=== PATIENT | male | born 1940 | race Caucasian/White ===

== ENCOUNTER 2022-02-24 15:02 | Inpatient (IN) ==
--- NOTE | 2022-02-24 15:23 | Emergency Department Note ---
Wound/Laceration HIP General Chief Complaint: Extremity Injury, Lower Stated Complaint: left foot on fire Time Seen by Provider: 02/24/22 15:05 Mode of arrival: ambulatory Limitations: no limitations History of Present Illness HPI Narrative: Narrative: Patient is an 81-year-old male that comes into the emergency department today with complaint of left hip and pain in his left foot. Patient describes sharp pain located at the toes and at the left heel. He rates the pain 10 out of 10 on 0-10 numerical pain scale. He apparently had a fall in September of this year and has had pain to his left hip since that time with radiation to the femur. He denies any reinjury or trauma. 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 Dr. Randle who was on-call for orthopedics was consulted and indicated the patient would be okay to bear weight as tolerated and would see him as an outpatient. Patient reports that he needs a hip surgery, but started having pain to the left foot with a small abrasion. He feels that the orthopedic surgeon will not do surgery until his foot is healed. He has not had any abdominal pain, chest pa in, shortness of breath, difficulty breathing, fevers, or chills. He denies any numbness or tingling. His pain is aggravated with weightbearing. He has been taking hydrocodone at home for his pain but reports that this does not help with his pain. Patient has past medical history of chronic kidney disease and patient's creatinine was 1.6 on January 16, 2022, 1.9 on August 17, 2021, and 2.1 on July 04, 2021. He reports that he is taking all of his regular medication. He does take apixaban for A. fib as well as furosemide, levothyroxine, carvedilol, atorvastatin, allopurinol, and losartan. Related Data Home Medications Medication Instructions Recorded Confirmed ipratropium 0.5 mg-albuterol 3 mg 3 ml inhalation QID 10/13/14 02/24/22 (2.5 mg base)/3 mL nebulization soln cholecalciferol (vitamin D3) 25 2,000 unit PO QDAY 02/11/18 02/24/22 mcg (1,000 unit) capsule allopurinol 100 mg tablet 100 mg PO QDAY 08/10/20 02/24/22 levothyroxine 75 mcg tablet 75 mcg PO QDAY 08/10/20 02/24/22 vit C,E,zinc,copper-wjszm1p 250 1 cap PO BID 08/10/20 02/24/22 mg-lutein 5 mg-zeaxanthin 1 mg capsule (Ocuvite Adult 50 Plus) acetaminophen 325 mg capsule 325 mg PO ONCE PRN Pain 10/07/20 02/24/22 (Tylenol) apixaban 5 mg tablet (Eliquis) 5 mg PO BID 10/07/20 02/24/22 budesonide-formoterol HFA 160 2 puff inhalation BID 10/07/20 02/24/22 mcg-4.5 mcg/actuation aerosol inhaler (Symbicort) carvedilol 3.125 mg tablet 6.25 mg PO BID 10/07/20 02/24/22 furosemide 20 mg tablet 20 mg PO BID 12/29/20 02/24/22 losartan 25 mg tablet 25 mg PO QDAY 02/16/21 02/24/22 hydrocodone 7.5 mg-acetaminophen 1 - 2 tab PO BIDP PRN pain 02/24/22 02/24/22 325 mg tablet Previous Rx's Medication Instructions Recorded atorvastatin 20 mg tablet 20 mg PO QDAY #90 tabs 01/04/18 Allergies Allergy/AdvReac Type Severity Reaction Status Date / Time No Known Drug Allergies Allergy Verified 02/24/22 23:42 Review of Systems ROS ROS Narrative: Narrative: All systems ED: reviewed and negative except as stated. [facility] Narrative Patient History Narrative: Narrative: Medical/Surgical/Family History All Active Problems (Updated 02/25/22 @ 13:03 by NELIDA Rogel) Atrial fibrillation (Acute) Benign localized prostatic hyperplasia with lower urinary tract symptoms (LUTS) (Acute) CAD (coronary artery disease) (Acute) Cardiomyopathy, secondary (Acute) Chronic kidney disease, stage III (moderate) (Chronic) COPD (chronic obstructive pulmonary disease) (Acute) Hx of colonic polyps (Acute) CHF (congestive heart failure) (Acute) Hx of gout (Chronic) Hepatitis B infection (Acute) Hyperlipidemia (Acute) Hypertension, essential, benign (Acute) Melanoma of skin (Acute) PE (pulmonary embolism) (Acute) Rheumatic heart disease (Acute) Hx of mitral valve repair (Acute) Hx of repair of left rotator cuff (Acute) Hx of repair of right rotator cuff (Acute) Secondary hyperparathyroidism of renal origin (Chronic) Anemia (Chronic) Hypothyroidism (Acute) NEVA (obstructive sleep apnea) (Acute) Abnormal CT scan, chest (Acute) NEVA (obstructive sleep apnea) (Acute) Elevated alkaline phosphatase level (Chronic) Elevated ferritin level (Acute) History of diabetes mellitus, type II (Chronic) Multiple skin tears (Acute) Encounter for wound re-check (Acute) Chronic systolic congestive heart failure, NYHA class 2 (Chronic) Secondary hyperparathyroidism of renal origin (Chronic) Lung mass (Chronic) Open wound of elbow (Chronic) At risk for falls (Chronic) Coronary arteriosclerosis (Chronic) Colon polyp (Chronic) Drug-induced hyperkalemia (Acute) Renal failure (ARF), acute on chronic (Acute) Hypotension (Acute) Cellulitis and abscess of foot (Acute) Acute kidney injury (Acute) Acute hyperkalemia (Acute) Avascular necrosis of bone of left hip (Acute) Medical History Anemia At risk for falls Atrial fibrillation Benign localized prostatic hyperplasia with lower urinary tract symptoms (LUTS) CAD (coronary artery disease) Cardiomyopathy, secondary CHF (congestive heart failure) Chronic kidney disease, stage III (moderate) 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 Sits right at the cusp of CKD 3 and 4 with a GFR of 30 cc/min In the past bland urinalysis Normal renal ultrasound Chronic systolic congestive heart failure, NYHA class 2 LVEF around 40 to 45% He is on low-dose EFRAIN inhibitor, beta-marcelo, and twice a day loop diuretic Colon polyp COPD (chronic obstructive pulmonary disease) Coronary arteriosclerosis Hepatitis B infection Hx of colonic polyps Hx of gout On a allopurinol adjusted for CKD Hyperlipidemia Hypertension, essential, benign Lung mass Melanoma of skin mid-lower back Open wound of elbow Left PE (pulmonary embolism) Rheumatic heart disease MVR Secondary hyperparathyroidism of renal origin PTH is at 72 near goal for CKD stage III Vitamin D, Calcium and phos at goal ct calcitriol 0.5mcg QOD for now will monitor Secondary hyperparathyroidism of renal origin At one time he was on calcitriol but this is been discontinued I will monitor is intact parathyroid hormone level on a every 6 month basis and reinitiate calcitriol therapy 1 its definitely above 150 but less than 300 Surgical History History of cardiac catheterization (09/18/14) Right heart catheterization and selective coronary angiography Hx of mitral valve repair valvuloplasty-robotic repair and maze procedure Hx of repair of left rotator cuff Hx of repair of right rotator cuff Family History no member listed Alcohol abuse father , 63 Cerebrovascular accident mother , 97 Cerebrovascular accident Social History Smoking Status: Never smoker Alcohol Intake Frequency: a few times a week Substance Use: does not use Exam Narrative Narrative: Narrative: General Limitations: no limitations General appearance: Present alert and in no apparent distress Head Head: Present atraumatic, normocephalic and normal inspection Eye Eye: Present normal appearance; Absent scleral icterus ENT ENT: Present mucous membranes moist Chest Chest: Present normal inspection and symmetric chest wall rise Respiratory Respiratory: Present normal lung sounds bilaterally; Absent respiratory distress, rales/crackles, wheezes or accessory muscle use Cardiovascular Cardiovascular: Present regular rate and irregular rhythm; Absent systolic murmur, diastolic murmur, rubs or clicks Adbominal Abdominal: Present soft; Absent distention or tenderness Extremities Extremities: Present normal capillary refill and other (Medial distal end of the left third and fourth toe of small superficial abrasions that are approximately 1 cm in diameter. No discharge or drainage. No surrounding erythema. Normal s ensation to the foot.); Absent pedal edema, pretibial edema or cyanosis Expanded Lower Extremity Hip/Pelvis: Present normal inspection, full ROM and tenderness (Moderate tenderness with palpation on the anterior and lateral side left hip.); Absent swelling, deformity, erythema, external rotation, internal rotation or shortening Upper leg: Present normal inspection and full ROM; Absent tenderness Knee: Present normal inspection and full ROM; Absent tenderness Lower leg: Present normal inspection and full ROM; Absent tenderness Neurovascular/Tendon: Present normal capillary refill; Absent sensory deficit Neurological Neurological: Present alert and oriented X3 Psychiatric Psychiatric: Present normal affect and normal mood Skin Skin: Present warm (WNL), dry and normal color Course Vital Signs Vital signs: Vital Signs Temperature 97.0 F 02/24/22 15:17 Pulse Rate 91 H 02/24/22 15:17 Respiratory Rate 18 02/24/22 15:17 Blood Pressure 86/55 02/24/22 15:17 Pulse Oximetry (%) 97 02/24/22 15:17 Oxygen Delivery Method 02/24/22 15:17 Temperature 97.3 F 02/25/22 08:01 Pulse Rate 106 H 02/25/22 09:50 Respiratory Rate 18 02/25/22 09:50 Blood Pressure 99/74 02/25/22 08:01 Pulse Oximetry (%) 98 02/25/22 09:50 Oxygen Delivery Method 02/25/22 09:50 Oxygen Flow Rate (L/min) 2 02/25/22 09:50 [facility] MDM Narrative Medical decision making narrative: Narrative: Patient is an 81-year-old male with chief complaint of pain that is a burning sensation in his left foot. He recently was seen 4 days ago at [facility] emergency department with left hip pain that has been bothering him since he fell sometime in September of this year. Was able to review the CT imaging report from outside facility that reports avascular necrosis of left hip without acute bony abnormalities and severe arthritic changes. Patient presented today with complaint of pain in his left foot and heel. 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 Proceed with an ultrasound of left lower extremity that does not show any evidence of DVT. Patient's [id number] chemistry panel did reveal a potassium of 5.8 and creatinine of 2.3. Patient has chronic kidney disease and baseline creatinine of 1.6 and 1.9. Patient was also hypotensive and did have bradycardia today so elected to hold off on the Dilaudid and patient received 1 L normal saline for hydration and a dose of IV Tylenol for pain. His pulse remains stable in the 60-80 range. EKG was obtained today that does show A. fib which is not a new finding for the patient and rate of 112. On the personnel monitor rate was not sustained with tachycardia. He was not experiencing any chest pain or shortness of breath. Patient has mild macrocytic hyperchromic anemia today on his CBC without any leukocytosis. He does not appear to be any significant findings of cellulitis on exam today to his left foot but he does have a couple small abrasions. Patient's pain that he is experiencing is likely related to the avascular necrosis. He feels very uncomfortable today and feels that he cannot manage his pain at home. He has been using hydrocodone without much relief. Today IV Tylenol was given upon arrival here in the emergency department. Patient was given 4.65 mill equivalent dose of calcium gluconate IV today for treatment of the hyperkalemia. I was able to speak to her electrolysis investigator, Dr. Ballesteros today which I am very appreciative of his time to speak with me. He reports that the patient will need to stop his losartan and he recommended no NSAIDs for management of patient's pain. He did recommend that patient may need a renal ultrasound to ensure that there is no obstruction. Given the patient having the pain and acute hyperkalemia with increase with creatinine level patient may benefit from hospitalization where management of electrolytes and monitoring renal function closely could be done. I was able to also speak with Dr. Matos who is on-call today for orthopedics regarding this patient's hip pain with avascular necrosis. He reports that he w ould be happy to consult with the hospitalist if patient is admitted to see about possible hip surgery, but it may not be necessary to be done over the weekend. He did recommend correcting potassium and stabilizing his renal function prior to any upcoming surgical procedure. I was able to consult with Dr. Zimmerman today who is on for hospitalist service at [facility]. Dr. Zimmerman does agree to accept patient for hospital admission and will admit patient to [facility] today. Lab Data Lab results reviewed: Yes I reviewed the patient's lab results. Result diagrams: 02/24/22 15:41 02/25/22 04:05 Labs: Lab Results 02/24/22 02/24/22 02/24/22 Range/Units 15:37 15:41 15:43 WBC 7.4 (4.5-11.0) K/mcL RBC 3.38 L (4.63-6.08) M/mcL Hgb 11.8 L (13.7-17.5) g/dL Hct 36.7 L (40.1-51.0) % POC Hct 40.0 L 40.0 L (41-55) MCV 108.6 H (80.0-100.0) fL MCH 34.9 H (26.0-34.0) pg MCHC 32.2 (31.0-36.0) g/dL RDW 13.8 (11.5-14.5) % Plt Count 239 (140-440) K/mcL MPV 10.3 (8.8-12.5) fL Immature Gran % (Auto) 0.5 (0.0-0.5) % Neut % (Auto) 69.4 (38.0-78.0) % Lymph % (Auto) 13.6 L (15.5-49.0) % [place] % (Auto) 12.6 H (1.0-12.0) % Eos % (Auto) 3.5 (0.0-7.0) % Baso % (Auto) 0.4 (0.0-2.0) % Lymph # (Auto) 1.00 L (1.50-4.80) K/mcL [place] # (Auto) 0.93 H (0.10-0.90) K/mcL Eos # (Auto) 0.26 (0.00-0.70) K/mcL Baso # (Auto) 0.03 (0.00-0.30) K/mcL Immature Gran # 0.04 (0.00-0.05) K/mcl Absolute Neutrophils 5.12 (1.80-8.00) K/mcL POC Sodium 135 134 (133-145) POC Potassium 5.9 H* 5.8 H (3.3-5.1) POC Chloride 103 103 (96-108) POC Total CO2 21.0 L 21.0 L (22-30) POC BUN 76 H 81 H (6-20) POC Creatinine 2.4 H 2.3 H (0.6-1.2) POC Glucose 88 89 (70-105) POC WB Ioniz Calcium 1.14 L 1.15 L (1.16-1.32) 02/24/22 Range/Units 17:26 WBC (4.5-11.0) K/mcL RBC (4.63-6.08) M/mcL Hgb (13.7-17.5) g/dL Hct (40.1-51.0) % POC Hct 35.0 L (41-55) MCV (80.0-100.0) fL MCH (26.0-34.0) pg MCHC (31.0-36.0) g/dL RDW (11.5-14.5) % Plt Count (140-440) K/mcL MPV (8.8-12.5) fL Immature Gran % (Auto) (0.0-0.5) % Neut % (Auto) (38.0-78.0) % Lymph % (Auto) (15.5-49.0) % [place] % (Auto) (1.0-12.0) % Eos % (Auto) (0.0-7.0) % Baso % (Auto) (0.0-2.0) % Lymph # (Auto) (1.50-4.80) K/mcL [place] # (Auto) (0.10-0.90) K/mcL Eos # (Auto) (0.00-0.70) K/mcL Baso # (Auto) (0.00-0.30) K/mcL Immature Gran # (0.00-0.05) K/mcl Absolute Neutrophils (1.80-8.00) K/mcL POC Sodium 134 (133-145) POC Potassium 5.9 H* (3.3-5.1) POC Chloride 103 (96-108) POC Total CO2 20.0 L (22-30) POC BUN 81 H (6-20) POC Creatinine 2.3 H (0.6-1.2) POC Glucose 89 (70-105) POC WB Ioniz Calcium 1.10 L (1.16-1.32) Radiology Data Radiology results reviewed: Yes I reviewed the patient's radiology results. Radiology results narrative: Ordering Physician:Flako Barfield Date of Service:02/24/22 Procedure(s):XR foot comp LT 3V HISTORY: Fell in September, open wound, persistent left foot pain FINDINGS: No fracture, dislocation, bone erosion or periosteal elevation are present. 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 The clinically described open wound is difficult to clearly identified. No gas or foreign body are present in the soft tissues. There is moderate atherosclerotic disease in the foot and ankle. 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 Doppler shows normal waveform patterns. No abnormal fluid collection is seen. IMPRESSION: Normal exam, without evidence of deep venous thrombosis Interpreted and Authenticated by: Geoff Rossa 02/24/22 EKG Data EKG #1: EKG attestation: Yes There are no EKG findings of acute coronary syndrome Rate: tachycardia Rhythm: A.Fib Discharge Plan Patient/Caregiver Discharge Instructions Pt seen by PONY ROUGHER/PA only: No Clinical Impression: Acute kidney injury, Acute hyperkalemia, Avascular necrosis of bone of left hip Patient Disposition: Xfer As Inpt ([facility]) Discharge Date/Time: 02/24/22 20:28
[2022-02-24 15:42] LABS: POC Calcium, Ionized 1.14 (1.16-1.32); POC Creatinine 2.4 (0.6-1.2); POC Potassium 5.9 (3.3-5.1)
[2022-02-24 15:45] LABS: POC Calcium, Ionized 1.15 (1.16-1.32); POC Creatinine 2.3 (0.6-1.2); POC Potassium 5.8 (3.3-5.1)
[2022-02-24] MEDS ORDERED: HYDROmorphone 0.5 MG/0.5 ML SYRINGE IV PRN (15:52)
[2022-02-24] MEDS ORDERED: 0.9 % SODIUM CHLORIDE 1,000 ML IV ONE (15:52)
[2022-02-24] MEDS ORDERED: KETOROLAC 30 MG/ML VIAL IV ONE (15:53)
[2022-02-24] MEDS ORDERED: ACETAMINOPHEN 650 MG/65 ML BAG IV ONE (15:54)
--- NOTE | 2022-02-24 15:58 | XRay Report ---
HISTORY: Fell in September, open wound, persistent left foot pain FINDINGS: No fracture, dislocation, bone erosion or periosteal elevation are present. 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 The clinically described open wound is difficult to clearly identified. No gas or foreign body are present in the soft tissues. There is moderate atherosclerotic disease in the foot and ankle. 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
[2022-02-24 16:28] LABS: Basophils # (Auto) 0.03 K/mcL (0.00-0.30); Basophils % (Auto) 0.4 % (0.0-2.0); Eosinophils # (Auto) 0.26 K/mcL (0.00-0.70); Eosinophils % (Auto) 3.5 % (0.0-7.0); Hematocrit 36.7 % (40.1-51.0); Hemoglobin 11.8 g/dL (13.7-17.5); Lymphocytes % (Auto) 13.6 % (15.5-49.0); Mean Cell Volume 108.6 fL (80.0-100.0); Mean Corpuscular HGB Conc 32.2 g/dL (31.0-36.0); Mean Platelet Volume 10.3 fL (8.8-12.5); Monocytes # (Auto) 0.93 K/mcL (0.10-0.90); Monocytes % (Auto) 12.6 % (1.0-12.0); Neutrophils % (Auto) 69.4 % (38.0-78.0); Platelet Count 239 K/mcL (140-440); RBC 3.38 M/mcL (4.63-6.08); Red Cell Distribution Width 13.8 % (11.5-14.5); WBC 7.4 K/mcL (4.5-11.0)
--- NOTE | 2022-02-24 17:05 | Ultrasound Report ---
History: Left leg pain from the heel to the hip FINDINGS: There is normal augmentation and compressibility in the deep veins and saphenous vein from the groin through the lower calf. Doppler shows normal waveform patterns. No abnormal fluid collection is seen. IMPRESSION: Normal exam, without evidence of deep venous thrombosis Interpreted and Authenticated by: Geoff Rosas 02/24/22
[2022-02-24 17:28] LABS: POC Calcium, Ionized 1.1 (1.16-1.32); POC Creatinine 2.3 (0.6-1.2); POC Potassium 5.9 (3.3-5.1)
[2022-02-24] MEDS ORDERED: CALCIUM GLUCONATE 4.65 MEQ in DEXTROSE 5% IN WATER 50 ML IV ONE (17:58)
--- NOTE | 2022-02-24 19:16 | Event Note ---
Event Note Event Note: Called by ED physician concerning elderly male with Hx of rLVEF CHF with MC replacement, CKD 3/4, T2DM, chronic mild hyperkalemia (low 5's) who present with foot pain in the setting of cellulitis w/o MRI evidence of osteomyelitis. Vital Signs Temp Pulse Resp BP Pulse Ox O2 Del Method 02/24/22 19:01 16 93/73 02/24/22 19:00 17 02/24/22 18:31 19 106/86 02/24/22 18:26 15 02/24/22 18:01 97 H 21 96/72 02/24/22 17:31 90/76 02/24/22 17:01 98/63 02/24/22 16:31 85/64 02/24/22 16:41 56 L 91 Room Air 02/24/22 16:19 78 02/24/22 16:01 101/68 02/24/22 15:56 78/51 02/24/22 15:55 69 02/24/22 15:52 104 H 02/24/22 15:46 89/57 02/24/22 15:37 106/61 02/24/22 15:32 97/65 02/24/22 15:17 36.1 C 91 H 18 86/55 97 Room Air Intake and Output 02/24/22 02/24/22 02/24/22 03:59 11:59 19:59 Intake Total 1125 Balance 1125 Intake: IV 1125 Sodium Chloride 0.9% 1,000 ml @ 1000 Wide Open IV BOLUS ONE Rx#: [id number] Calcium Gluconate 4.65 Meq In 60 Dextrose 5% in Water 50 ml @ 100 mls/hr IV ONCE ONE Rx#: [id number] Other: Weight 83.915 kg Patient Weight 02/25/22 03:59 Weight 83.915 kg Laboratory Results - last 48 hr 02/24/22 02/24/22 02/24/22 15:37 15:41 15:43 WBC 7.4 RBC 3.38 L Hgb 11.8 L Hct 36.7 L POC Hct 40.0 L 40.0 L MCV 108.6 H MCH 34.9 H MCHC 32.2 RDW 13.8 Plt Count 239 MPV 10.3 Immature Gran % (Auto) 0.5 Neut % (Auto) 69.4 Lymph % (Auto) 13.6 L [place] % (Auto) 12.6 H Eos % (Auto) 3.5 Baso % (Auto) 0.4 Lymph # (Auto) 1.00 L [place] # (Auto) 0.93 H Eos # (Auto) 0.26 Baso # (Auto) 0.03 Immature Gran # 0.04 Absolute Neutrophils 5.12 POC Sodium 135 134 POC Potassium 5.9 H* 5.8 H POC Chloride 103 103 POC Total CO2 21.0 L 21.0 L POC BUN 76 H 81 H POC Creatinine 2.4 H 2.3 H POC Glucose 88 89 POC WB Ioniz Calcium 1.14 L 1.15 L 02/24/22 17:26 WBC RBC Hgb Hct POC Hct 35.0 L MCV MCH MCHC RDW Plt Count MPV Immature Gran % (Auto) Neut % (Auto) Lymph % (Auto) [place] % (Auto) Eos % (Auto) Baso % (Auto) Lymph # (Auto) [place] # (Auto) Eos # (Auto) Baso # (Auto) Immature Gran # Absolute Neutrophils POC Sodium 134 POC Potassium 5.9 H* POC Chloride 103 POC Total CO2 20.0 L POC BUN 81 H POC Creatinine 2.3 H POC Glucose 89 POC WB Ioniz Calcium 1.10 L Magnetic Resonance Report Signed Ordering Physician:Unknown,Unknown Date of Service:02/24/22 Procedure(s):MR nikki DAN wo con History: Diabetic with open wound in the left heel and pressure ulcer in a toe, stage II TECHNIQUE: Multiplanar imaging was performed using multiple pulse sequences. FINDINGS: There is moderate cellulitis along the inferior medial aspect of the heel. There is inflammation of the deep fat extending down to the level of bone. However, there is no bone erosion or evidence of osteomyelitis. There is a small spur on the plantar surface of the calcaneus with no associated inflammation. 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 The toes are otherwise normal. There is no fracture, dislocation or evidence of osteomyelitis within the toes. No soft tissue abscess is present in the foot. There is a cluster of small subcortical cysts in the lateral malleolus which is probably related to arthritis. IMPRESSION: Cellulitis along the inferior medial aspect of the heel and no evidence of osteomyelitis Renal Office Note 01/2022: The patient has h/o CKD stage III with no proteinuria in the setting of HTN, ischemic cardiomyopathy with EF of 30-35%,obesity and h/o T2DM He has secondary hyperparathyroidism and mild anemia associated with his CKD. Never demonstrated proteinuria in ~ 10 measurements Blood pressure is well controlled his GFR is stable albeit reduced at around 30 to 35 cc/min. He knows to avoid nonsteroidals and he has not had a flare of the gout since being started on allopurinol. His atrial fibrillation is well controlled on a combination of amiodarone 100 mg a day and carvedilol 6.25 mg twice a day. He has minimal edema on furosemide 40 mg twice a day. He is on lisinopril 5 mg a day for additional blood pressure control. He takes an inhaled steroid/LABA combination as well as a rescue inhaler (ASCENCION). Today he is doing well and offers no complaints and is you can see his GFR is stable and he has no significant proteinuria. 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 ON MY LABS TSH was 50 in Jan 2020, but he tells me that [facility] and he was told things looked okay. He may need "tie breaker" TSH level as he is on amiodarone and prone to develop hypothyroidism. He is not particularly bradycardic this visit. 14 day Holter now with Dr Zander BILLY at [facility] cardiology Recent increase in T4 replacement from 50 to 75 ug/day. [facility] to recheck TSH Well compensated CHF with stabe CKD. Tolerates low BP well. To my eye this is cardiorenal syndrome and his kidneys will mirror his cardiac output => Echo 06/2020 with rLVEF 25% and dilated LV Blood pressure is well controlled his GFR is stable albeit reduced at around 30 to 35 cc/min. He knows to avoid nonsteroidals and he has not had a flare of the gout since being started on allopurinol. His atrial fibrillation is well controlled on a combination of amiodarone 100 mg a day and carvedilol 6.25 mg twice a day. He has minimal edema on furosemide 40 mg twice a day. He is on lisinopril 5 mg a day for additional blood pressure control. He takes an inhaled steroid/LABA combination as well as a rescue inhaler (ASCENCION). Today he is doing well and offers no complaints and is you can see his GFR is stable and he has no significant proteinuria. 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 ON MY LABS TSH was 50 in Jan 2020, but he tells me that [facility] and adjusting his thyroid replacement and he was told things looked okay. He may need "tie breaker" TSH level as he is on amiodarone and prone to develop hypothyroidism. He is not particularly bradycardic this visit. 14 day Holter now with Dr Zander BILLY at [facility] cardiology Recent increase in T4 replacement from 50 to 75 ug/day. [facility] to recheck TSH Well compensated CHF with stabe CKD. Tolerates low BP well. To my eye this is cardiorenal syndrome and his kidneys will mirror his cardiac output He is now presenting with decreased GFR, elevated potassium and no evidence of an AG (+) acidosis. 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 As go the heart (CO and BP)...so goes the kidneys, he probably needs Cardiac management as well as renal as this is worsening cardiorenal syndrome Pre-Hospital Serum Creatinine Assessment and Plan Assessment and Plan (1) Renal failure (ARF), acute on chronic: Status: Acute Code(s): N17.9 - Acute kidney failure, unspecified; N18.9 - Chronic kidney disease, unspecified Current Status: New Comment: Low BP and CO is fixed low EF and poor LV filling from A fib Worsening of underlying cardiorenal syndrome is most likely (2) Hypotension: Status: Acute Code(s): I95.9 - Hypotension, unspecified Comment: Poor LVEF/BP and infection related vasodilation (3) Chronic kidney disease, stage III (moderate): Status: Chronic Code(s): N18.3 - Chronic kidney disease, stage 3 (moderate) Qualifiers: Chronic kidney disease stage 3 subtype: stage 3b (GFR 30-44) Qualified Code(s): N18.32 - Chronic kidney disease, stage 3b Comment: Either cardiorenal syndrome or chronic interstitial nephritis. CKD 3 with a GFR of 30 - 40cc/min In the past bland urinalysis Normal renal ultrasound (4) Chronic systolic congestive heart failure, NYHA class 2: Status: Chronic Code(s): I50.22 - Chronic systolic (congestive) heart failure Comment: LVEF around 40 to 45% He is on low-dose EFRAIN inhibitor, beta-marcelo, and twice a day loop diuretic Despite low blood pressure it seems to be fairly well compensated (5) Atrial fibrillation: Status: Acute Code(s): I48.91 - Unspecified atrial fibrillation Qualifiers: Atrial fibrillation type: chronic Qualified Code(s): I48.2 - Chronic atrial fibrillation (6) Secondary hyperparathyroidism of renal origin: Status: Chronic Code(s): N25.81 - Secondary hyperparathyroidism of renal origin Comment: At one time he was on calcitriol but this is been discontinued I will monitor is intact parathyroid hormone level on a every 6 month basis and reinitiate calcitriol therapy 1 its definitely above 150 but less than 300 (7) Cellulitis and abscess of foot: Status: Acute Code(s): L03.119 - Cellulitis of unspecified part of limb; L02.619 - Cutaneous abscess of unspecified foot Plan 1. Volume expand as tolerated 2. STOP TORADOL 3. Hold RASSI therapy 4. Lokelma 10 gm po daily for hyperkalemia in a patient who needs RASSI therapy for rLVEF CHF (If not available here, you'll have to use kayexalate in 20% sorbitol) 5. Avoid renally toxic Rx like NSAIDs and TMP/SMX 6. May need inotropic infusion with dopamineIV/po ypur choice. 7. Clinda for foot 8. Procalcitonin, ESR, CRP and proBNP tonite as baseline 9. Renal U/S to R/O obstruction 10. Repeat Echo 11. Cardiology evaluation. 12. Would not argue against Tx'quyen for higher level of care have reviewed the current data. 13. Dr Boykin sales agent pest control service in AM if consult request by Hospital medicine Patient Instructions: N/A
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
[2022-02-24] MEDS ORDERED: SENNOSIDES 1 TABLET PO PRN (20:35)
[2022-02-24] MEDS ORDERED: ONDANSETRON 4 MG/2 ML VIAL IV PRN (20:35)
[2022-02-24] MEDS ORDERED: ACETAMINOPHEN 325 MG TABLET PO PRN (20:35)
[2022-02-24] MEDS ORDERED: POTASSIUM CHLORIDE 40 MEQ in DEXTROSE 5% IN WATER 500 ML IV PRN (20:35)
[2022-02-24] MEDS ORDERED: MAGNESIUM SULFATE 2 GM/50 ML BAG IV PRN (20:35)
[2022-02-24] MEDS ORDERED: CARVEDILOL 3.125 MG TABLET PO SCH (21:00)
[2022-02-24] MEDS ORDERED: SODIUM POLYSTYRENE SULFONATE 15 GM/60 ML SUSPENSION PO SCH (21:15)
[2022-02-24] MEDS: Budesonide-Formoterol [Symbicort] 160-4.5 mcg/act INH SCH (21:16)
[2022-02-24] MEDS: HYDROcodone/APAP 5/325MG TABLET PO PRN (21:20)
[2022-02-24] MEDS: DOCUSATE SODIUM 100 MG CAPSULE PO SCH (21:20)
[2022-02-24] MEDS: APIXABAN 5 MG TABLET PO SCH (21:20)
[2022-02-24] MEDS: 0.9 % SODIUM CHLORIDE 10 ML SYRINGE IV SCH (21:22)
[2022-02-24] MEDS: 0.9 % SODIUM CHLORIDE 1,000 ML IV SCH (21:22)
[2022-02-24] MEDS: IPRATROPIUM/ALBUTEROL 3 ML AMPUL.NEB NEB SCH (21:28)
[2022-02-25] MEDS: HYDROcodone/APAP 5/325MG TABLET PO PRN ×3 (01:58→20:06)
[2022-02-25] MEDS: 0.9 % SODIUM CHLORIDE 10 ML SYRINGE IV SCH ×3 (05:36→20:06)
[2022-02-25 07:23] LABS: ALT/SGPT 6 U/L (<40); AST/SGOT 14 U/L (<40); Albumin 2.6 gm/dL (3.2-5.2); Albumin/Globulin Ratio 0.9 (1.0-2.3); Alkaline Phosphatase 180 U/L (39-117); Bilirubin,Direct 0.2 mg/dL (<0.3); Bilirubin,Total 0.4 mg/dL (0.1-1.0); Blood Urea Nitrogen 69 mg/dL (8-23); Calcium 8.3 mg/dL (8.6-10.4); Carbon Dioxide 19 mmol/L (22-30); Chloride 104 mmol/L (96-108); Globulin 2.8 gm/dL (2.2-3.7); Glomerular Filtration Rate 30; Glucose 95 mg/dL (70-105); Lactate Dehydrogenase 223 U/L (135-225); Phosphorous 4.4 mg/dL (2.5-4.5); Triglycerides 54 mg/dL (<150); Uric Acid 5.4 mg/dL (2.5-8.0)
--- NOTE | 2022-02-25 08:34 | Internal Med Progress Note ---
SUBJECTIVE Subjective Patient information: Note initiated : 02/25/22 at 8:28 am Service Date, if different from initiated Date: [] Patient: Luis Fernando Vann 81 y/o M admitted on 02/24/22 for left foot on fire. Chief Complaint: [] Interval history: History of present illness: Mr. Vann is a 81 year old M This to the ED with left foot pain. Patient recently seen at [facility] for left hip pain after a fall 2 months prior. He was diagnosed with avascular necrosis of left hip and ER consulted with Dr. Randle who is going to see the patient in the office. While in the ER he was evaluated and found to have a potassium of 5.9. His creatinine was above baseline to 2.4. His blood pressure which typically runs 100/60 and dropped as low as 89/57. Patient denies any fever chills chest pain nausea or vomiting. Complains of constipation. Left foot x-ray was done which showed severe osteoarthritis of the first metatarsophalangeal joint but no fractures. He has ulcerations over the tips of his left toes which looks like they have been rubbed raw 02/25 Patient dates he feels fine other than his hip pain and his left foot pain which is mostly at the end of his toes. Potassium mildly elevated but better. Creatinine still elevated but improving. Discussed the case with Dr. Ballesteros who recommended low-dose of captopril once EFRAIN inhibitor restarted and low potassium diet. MRI done yesterday showed cellulitis along the inferior medial aspect of the heel but no osteomyelitis. Review of Systems: denies headache/fever/chills/nausea/vomiting/chest or abdominal pain/cough/dyspnea/diarrhea. Otherwise see above. Constitutional Vitals: Vital Signs Temp Pulse Resp BP Pulse Ox O2 Del Method O2 Flow Rate 97.3 F 65 19 99/74 100 2 02/25/22 08:01 02/25/22 06:01 02/25/22 08:01 02/25/22 08:01 02/25/22 06:01 02/25/22 06:01 02/25/22 06:01 Period Temp Pulse Resp BP Sys/Freeman Pulse Ox O2 Del Method O2 Flow Rate Last 24 Hr 97.0 F-97.5 F 56-136 14-21 78-115/51-91 91-100 Nasal Cannula- Room Air 2-2 Intake and Output 02/24/22 02/25/22 02/25/22 19:59 03:59 11:59 Intake Total 1125 Output Total 400 175 Balance 1125 -400 -175 Weight 83.915 kg 83.098 kg Intake & Output: Intake & Output 02/24/22 02/25/22 02/25/22 19:59 03:59 11:59 Intake Total 1125 Output Total 400 175 Balance 1125 -400 -175 Weight 83.915 kg 83.098 kg Intake: IV 1125 Sodium Chloride 0.9% 1,000 ml @ 1000 Wide Open IV BOLUS ONE Rx#: [id number] Calcium Gluconate 4.65 Meq In 60 Dextrose 5% in Water 50 ml @ 100 mls/hr IV ONCE ONE Rx#: [id number] Output: Void Amount 400 175 Other: Urine Appearance Clear Small Blood Clots Hematuria Urine Color Light Red Yellow Urine Odor Normal Normal Exam: General: Alert, Awake, No acute Distress Eyes/N/T: EOMI, Head/Neck: neck supple, CV: Irregular, No murmurs, Pulm: Clear b/l, no wheezing/rhonchi/rales Abd: soft, nontender, +BS x4 Ext: no clubbing/cyanosis/edema. left toes 3-5 with ulcerations/erythema over tips of toes Neuro: Alert, no focal deficits, moves all extremities, Skin: warm/dry OBJ DATA Labs CBC & Chem 7: 02/24/22 15:41 02/25/22 04:05 Labs: Abnormal Lab Results 02/25/22 02/24/22 02/24/22 04:05 17:26 15:43 RBC Hgb Hct POC Hct 35.0 L 40.0 L MCV MCH Lymph % (Auto) [place] % (Auto) Lymph # (Auto) [place] # (Auto) POC Potassium 5.9 H* 5.8 H Potassium 5.3 H Carbon Dioxide 19 L POC Total CO2 20.0 L 21.0 L POC BUN 81 H 81 H BUN 69 H Creatinine 2.0 H POC Creatinine 2.3 H 2.3 H Calcium 8.3 L POC WB Ioniz Calcium 1.10 L 1.15 L GGT 117 H Alkaline Phosphatase 180 H Total Protein 5.4 L Albumin 2.6 L Albumin/Globulin Ratio 0.9 L 02/24/22 02/24/22 15:41 15:37 RBC 3.38 L Hgb 11.8 L Hct 36.7 L POC Hct 40.0 L MCV 108.6 H MCH 34.9 H Lymph % (Auto) 13.6 L [place] % (Auto) 12.6 H Lymph # (Auto) 1.00 L [place] # (Auto) 0.93 H POC Potassium 5.9 H* Potassium Carbon Dioxide POC Total CO2 21.0 L POC BUN 76 H BUN Creatinine POC Creatinine 2.4 H Calcium POC WB Ioniz Calcium 1.14 L GGT Alkaline Phosphatase Total Protein Albumin Albumin/Globulin Ratio Meds: Medications Acetaminophen (Acetaminophen 325 Mg Tablet) 650 mg PO Q6HP PRN; Protocol PRN Reason: Per Pain Protocol/Fever > 101 Hydrocodone Bitart/Acetaminophen (Hydrocodone/Apap 5/325mg Tablet) 1 tab PO Q4HP PRN PRN Reason: PAIN LEVEL 3-6 Last Admin: 02/25/22 01:58 Dose: 1 tab Albuterol/Ipratropium (Ipratropium/Albuterol 3 Ml Ampul.Neb) 3 ml NEB QID [facility] Last Admin: 02/24/22 21:28 Dose: 3 ml Allopurinol (Allopurinol 100 Mg Tablet) 100 mg PO QDAY [facility] Apixaban (Apixaban 5 Mg Tablet) 5 mg PO BID [facility] Last Admin: 02/24/22 21:20 Dose: 5 mg Atorvastatin Calcium (Atorvastatin 20 Mg Tablet) 20 mg PO QDAY [facility] Carvedilol (Carvedilol 3.125 Mg Tablet) 3.125 mg PO BID [facility] Last Admin: 02/24/22 21:20 Dose: 3.125 mg Docusate Sodium (Docusate Sodium 100 Mg Capsule) 100 mg PO BID [facility] Last Admin: 02/24/22 21:20 Dose: 100 mg Potassium Chloride 40 meq/ (Dextrose) 520 mls @ 130 mls/hr IV UD PRN PRN Reason: Potassium < 3 Magnesium Sulfate (Magnesium Sulfate) 2 gm in 50 mls @ 50 mls/hr IV UD PRN PRN Reason: Magnesium </= 1.6 Sodium Chloride (Sodium Chloride 0.9%) 1,000 mls @ 75 mls/hr IV .[id number] [facility] Stop: 02/25/22 23:14 Last Admin: 02/24/22 21:22 Dose: 75 mls/hr Levothyroxine Sodium (Levothyroxine 75 Mcg Tablet) 75 mcg PO QDAY [facility] Metoprolol Tartrate (Metoprolol Tartrate 5 Mg/5 Ml Vial) 5 mg IV Q2HP PRN PRN Reason: Tachyarrhythmias HR>110 Ondansetron HCl (Ondansetron 4 Mg/2 Ml Vial) 4 mg IV Q4HP PRN PRN Reason: Nausea And Vomiting Budesonide- Formoterol [ Symbicort] 160-4.5 Mcg/Act 2 dose INH BID [facility] Last Admin: 02/24/22 21:16 Dose: Not Given Polyethylene Glycol (Polyethylene Glycol 3350 17 Gm Packet) 17 gm PO DAILYP PRN PRN Reason: Constipation Senna (Sennosides 1 Tablet) 2 tab PO DAILYP PRN PRN Reason: Constipation Sodium Chloride (0.9 % Sodium Chloride 10 Ml Syringe) 10 ml IV Q8 [facility] Last Admin: 02/25/22 05:36 Dose: Not Given A/P Narrative A/P Narrative: A: *DILCIA on CKD IIIb: improving -renal u/s no acute, large prostate causing large post-void residual *Hyperkalemia: improving *Volume depletion: *Hypotension: pt says baseline BP is 100/60 *Left foot cellulitis and toe ulcers/cellulitis: *Anemia, chronic: *h/o systolic(40-45%) CHF: *Chronic atrial fibrillation: *COPD: *HTN: *Hypothyroidism: *Left Hip Osteonecrosis 2/2 fall *Urinary Retention: 2/2 enlarged prostate P: -IVF today -Hold Lasix for now -hold BB/ARB for hypotension/hyperkalemia/dilcia, upon d/c will switch ARB to captopril 6.25 bid per nephrology and low K diet -rocephin -cont home IH's -Follow-up renal function and fluid balance -Dr. Matos for left hip -flomax -PT/OT -ppx: Apixaban Time Spent With Patient Time: Total time spent is greater than 50% in coordination of care (as documented) at patient's floor/unit and/or counseling patient: Total time spent with greater than 50% in coordination of care (as documented) at patient's floor/unit and/or counseling patient:: 25 - 35 minutes QUALITY VTE Deep Vein Thrombosis/Pulmonary Embolism Present on Admission: No
--- NOTE | 2022-02-25 08:53 | Ultrasound Report ---
History: Acute kidney injury The right kidney measures 5.2 x 5.9 x 9.0 cm and the left measures 3.6 x 4.6 x 9.8 cm. The cortex is normal in thickness and echogenicity bilaterally. Doppler shows normal symmetric blood flow. There is no hydronephrosis mass or calculus. The upper pole the right kidney there is a simple cyst which measures 2.7 x 2.9 x 2.9 cm. This is a chronic finding. Beneath the cortex in the lower third of the left kidney there is a 1.7 x 1.9 x 2.6 cm cyst. This has enlarged since 12/26/17. Doppler shows normal flow urine through the right ureter into the bladder and relatively diminished flow of urine from the left kidney into the bladder. Before voiding the bladder contained 627 cc of urine. After voiding is 288 cc. The prostate is markedly enlarged with an estimated volume of 138 cc. IMPRESSION: Simple cysts in both kidneys. Relatively diminished urine output from left kidney compared with the right. Enlarged prostate causing a large post void residual in the bladder Interpreted and Authenticated by: Geoff Rosas 02/25/22
[2022-02-25] MEDS: IPRATROPIUM/ALBUTEROL 3 ML AMPUL.NEB NEB SCH ×4 (09:44→22:52)
--- NOTE | 2022-02-25 09:44 | Consultation ---
DATE OF CONSULTATION: 02/25/2022 IDENTIFYING DATA: This is an 81-year-old male. CHIEF COMPLAINT: Left foot and left hip pain. HISTORY OF PRESENT ILLNESS: The patient recently presented to the Emergency Department with complaints of left foot and heel pain. He had previously presented to [facility] within the last couple of weeks after a fall was sustained 2 prior months ago. The patient was diagnosed with avascular necrosis. Orthopedics were then consulted and Dr Randle recommended he follow up as an outpatient in the office. The patient was actually a patient of Dr Vann and had had prior intra-articular hip injection of the left hip. The patient reports that this injection made a lot of improvement in his symptoms, but over the last several weeks, his pain has been increasingly worse to the point where he is having difficulty bearing weight and he has pain with just about all types of range of motion of the hip. The hip pain was not what caused the patient to present to the Emergency Department; however, he was complaining about his toes being on fire and a lot of pain in his left heel. PAST MEDICAL HISTORY: Includes atrial fibrillation; BPH; CAD; cardiomyopathy; chronic kidney disease, stage III; COPD; CHF; gout; hepatitis B; hyperlipidemia; hypertension; melanoma; rheumatic heart disease; history of mitral valve repair; repair of left-sided rotator cuff and right rotator cuff; hyperparathyroidism; anemia; hypothyroidism; and sleep apnea. He has had chronic elevated alkaline phosphatase and diabetes type 2. The patient has had multiple skin tears problems, lung masses, hyperthyroidism, he has had renal failure, hypotension, and currently ongoing cellulitis of the foot. SURGICAL HISTORY: Cardiac catheterization, history of mitral valve repair, and history of left and right rotator cuff surgery. FAMILY HISTORY: Includes CVA of mother and father. SOCIAL HISTORY: The patient does live independently. He is . The patient does not smoke and uses alcohol a few times a week. MEDICATION LIST: Include; 1. Ipratropium nebulized. 2. Atorvastatin. 3. Allopurinol. 4. Levothyroxine. 5. Multivitamin. 6. Tylenol. 7. Eliquis. 8. Carvedilol. 9. Furosemide. 10. Losartan. ALLERGIES: NO KNOWN DRUG ALLERGIES. The patient has had a significant amount of lab abnormalities, which are being evaluated by internal medicine. One most important concern is the low potassium, currently is 5.9. The patient also demonstrates significant abnormalities with his BUN and creatinine currently 69 and 2.0. His white count is normal; however, he demonstrate some mild anemia with a hemoglobin 11.8 and hematocrit of 36.7. PHYSICAL EXAMINATION: Current Vital Signs: Include blood pressure of 99/74, respirations 19, temperature 97.3. General: Demonstrates a well-developed, well-nourished pleasant 81-year-old male who is currently residing in the ICU for monitoring purposes. He is comfortable on exam overall. HEENT: Head is normocephalic. Chest: The patient demonstrated chest with a discrete 2/6 systolic ejection murmur, likely consistent with his valvular history. No current wheezing, rhonchi, or rales. Abdomen: Grossly nontender and soft with no organomegaly. Musculoskeletal: Patient had grossly intact lower extremity motor exam. He stated that his left foot was very sore and to avoid touching his toes. Inspection of the foot demonstrates erythema throughout the toes all the way to the tips. These were moderate in erythema, but very tender to palpation. Heel demonstrated no significant erythema also no breaks in the skin, open sores, lacerations, abrasions or other skin lesions. The patient had grossly intact dorsiflexion and plantar flexion. No calf pain. The patient was able to hip flex up to 90 degrees. This was quite tender for him. I did mobilize the hip with internal and external hip rotation. This was quite sore for him consistent with his avascular necrosis. IMAGING REVIEW: Patient has had prior hip radiographs that were reviewed and demonstrate a near [id number] contact with some lytic changes in the femoral head consistent with avascular necrosis, but no collapse or fractures. MRI of the left foot also reviewed, demonstrated active cellulitis of the left heel. No evidence of osteomyelitis. ASSESSMENT: 1. Chronic ongoing left hip pain with recent progression and exacerbation secondary to severe [id number] degenerative osteoarthritis and avascular necrosis. 2. Left foot cellulitis. 3. Chronic renal failure with unstable BUN, creatinine, and potassium currently being monitored and evaluated by internal medicine. TREATMENT PLAN: This patient certainly needs total hip arthroplasty and unfortunately at this point, he is not a surgical candidate based on active infection in the same extremity. We would recommend treating the cellulitis and stabilizing his renal disease. This patient is a patient of Dr Vann. He has a followup appointment scheduled in the office on the of this month and would recommend that he keep this appointment and pending his cellulitis and infection of the left foot would make a determination on whether or not total hip arthroplasty is appropriate for him. Pain control at this point in time would be our recommendation for him in addition to the other recommendations. I did consult Dr Vann and Dr Matos, they both felt that this was an appropriate course for this patient. Dictated for Zeus Matos MD BAP:[email or web address] Job ID: [id number] Doc ID: [id number] Micah Rea PA-C
[2022-02-25] MEDS: Budesonide-Formoterol [Symbicort] 160-4.5 mcg/act INH SCH (09:58)
[2022-02-25] MEDS: APIXABAN 5 MG TABLET PO SCH ×2 (09:58→19:51)
[2022-02-25] MEDS ORDERED: SODIUM POLYSTYRENE SULFONATE 15 GM/60 ML SUSPENSION PO SCH (10:00)
[2022-02-25] MEDS ORDERED: TAMSULOSIN 0.4 MG CAPSULE PO SCH (10:00)
[2022-02-25] MEDS: 0.9 % SODIUM CHLORIDE 1,000 ML IV SCH ×3 (10:05→22:52)
[2022-02-25] MEDS: ATORVASTATIN 20 MG TABLET PO SCH (11:56)
[2022-02-25] MEDS: LEVOTHYROXINE 75 MCG TABLET PO SCH (11:56)
[2022-02-25] MEDS: DOCUSATE SODIUM 100 MG CAPSULE PO SCH ×2 (11:57→20:05)
[2022-02-25] MEDS: ALLOPURINOL 100 MG TABLET PO SCH (11:57)
[2022-02-25] MEDS: cefTRIAXone 2 GM in DEXTROSE 5% IN WATER 50 ML IV SCH (11:58)
[2022-02-25] MEDS: POLYETHYLENE GLYCOL 3350 17 GM PACKET PO PRN (11:58)
[2022-02-25] MEDS ORDERED: SENNOSIDES 1 TABLET PO SCH (12:00)
[2022-02-25] MEDS: BUDESONIDE 0.5 MG/2 ML AMPUL.NEB NEB SCH ×2 (17:41→21:20)
[2022-02-25] MEDS ORDERED: BUDESONIDE 0.5 MG/2 ML AMPUL.NEB ONE (17:51)
[2022-02-25] MEDS ORDERED: IPRATROPIUM/ALBUTEROL 3 ML AMPUL.NEB NEB SCH (19:00)
[2022-02-25] MEDS ORDERED: BISACODYL 10 MG SUPP.RECT PR PRN (19:55)
[2022-02-25] MEDS ORDERED: LACTULOSE 20 GM/30 ML ORAL.SOL PO SCH (20:00)
[2022-02-25] MEDS: POLYETHYLENE GLYCOL 3350 17 GM PACKET PO SCH (20:05)
[2022-02-25] MEDS: TAMSULOSIN 0.4 MG CAPSULE PO SCH (20:05)
[2022-02-25] MEDS: METOPROLOL TARTRATE 5 MG/5 ML VIAL IV PRN (20:38)
[2022-02-26] MEDS: HYDROcodone/APAP 5/325MG TABLET PO PRN ×4 (02:04→20:29)
[2022-02-26] MEDS: METOPROLOL TARTRATE 5 MG/5 ML VIAL IV PRN (02:04)
[2022-02-26] MEDS: 0.9 % SODIUM CHLORIDE 10 ML SYRINGE IV SCH ×3 (04:29→20:28)
[2022-02-26 07:13] LABS: Blood Urea Nitrogen 54 mg/dL (8-23); Calcium 7.8 mg/dL (8.6-10.4); Carbon Dioxide 18 mmol/L (22-30); Chloride 106 mmol/L (96-108); Glomerular Filtration Rate 42; Glucose 113 mg/dL (70-105)
--- NOTE | 2022-02-26 08:33 | Internal Med Progress Note ---
SUBJECTIVE Subjective Patient information: Note initiated : 02/26/22 at 8:29 am Service Date, if different from initiated Date: [] Patient: Luis Fernando Vann 81 y/o M admitted on 02/24/22 for left foot on fire. Chief Complaint: [] Interval history: History of present illness: Mr. Vann is a 81 year old M This to the ED with left foot pain. Patient recently seen at [facility] for left hip pain after a fall 2 months prior. He was diagnosed with avascular necrosis of left hip and ER consulted with Dr. Randle who is going to see the patient in the office. While in the ER he was evaluated and found to have a potassium of 5.9. His creatinine was above baseline to 2.4. His blood pressure which typically runs 100/60 and dropped as low as 89/57. Patient denies any fever chills chest pain nausea or vomiting. Complains of constipation. Left foot x-ray was done which showed severe osteoarthritis of the first metatarsophalangeal joint but no fractures. He has ulcerations over the tips of his left toes which looks like they have been rubbed raw 02/25 Patient dates he feels fine other than his hip pain and his left foot pain which is mostly at the end of his toes. Potassium mildly elevated but better. Creatinine still elevated but improving. Discussed the case with Dr. Ballesteros who recommended low-dose of captopril once EFRAIN inhibitor restarted and low potassium diet. MRI done yesterday showed cellulitis along the inferior medial aspect of the heel but no osteomyelitis. 02/26 Patient does complain of left foot pain describes a burning especially in the heel. He does have abrasions to the left heel. And also those ulcerations of the tips of his toes. Renal function is improved today as well as potassium level. Does have some metabolic acidosis. Review of Systems: denies headache/fever/chills/nausea/vomiting/chest or abdominal pain/cough/dyspnea/diarrhea. Otherwise see above. Constitutional Vitals: Vital Signs Temp Pulse Resp BP Pulse Ox O2 Del Method O2 Flow Rate 98.2 F 97 H 17 120/74 96 2 02/26/22 08:01 02/26/22 08:01 02/26/22 08:01 02/26/22 08:01 02/26/22 08:01 02/25/22 22:53 02/25/22 09:50 Period Temp Pulse Resp BP Sys/Freeman Pulse Ox O2 Del Method O2 Flow Rate Last 24 Hr 97.3 F-98.2 F 44-117 95-120/57-82 93-100 Nasal Cannula- Room Air 2 Intake and Output 02/25/22 02/26/22 02/26/22 19:59 03:59 11:59 Intake Total 1136 1239 Output Total 450 100 275 Balance 686 1139 -275 Weight 83.098 kg 85.094 kg Intake & Output: Intake & Output 02/25/22 02/26/22 02/26/22 19:59 03:59 11:59 Intake Total 1136 1239 Output Total 450 100 275 Balance 686 1139 -275 Weight 83.098 kg 85.094 kg Intake: IV 776 759 Sodium Chloride 0.9% 1,000 ml @ 726 759 75 mls/hr IV .[id number] [facility] Rx#: [id number] Rocephin 2 gm In Dextrose 5% in 50 Water 50 ml @ 100 mls/hr IV Q24H [facility] Rx#:[id number] Oral 360 480 Output: Void Amount 450 100 275 Other: Meal Dinner Percent of Meal Consumed 50% Feeding Ability Assist with Tray Set Up Urine Appearance Hematuria Large Blood Clots Clear Large Blood Clots Urine Color Dark Red Dark Yellow Bright Yellow Urine Odor Normal Normal Stool Size Smear Moderate Stool Color Malick Colored Malick Colored Stool Consistency Liquid Dry and Hard Formed Ellie # Voids 1 # Bowel Movements 1 Exam: General: Alert, Awake, No acute Distress Eyes/N/T: EOMI, Head/Neck: neck supple, CV: Irregular, No murmurs, Pulm: Clear b/l, no wheezing/rhonchi/rales Abd: soft, nontender, +BS x4 Ext: no clubbing/cyanosis/edema. left toes 3-5 with ulcerations/erythema over tips of toes. abrasions to heal with erythema Neuro: Alert, no focal deficits, moves all extremities, Skin: warm/dry OBJ DATA Labs CBC & Chem 7: 02/24/22 15:41 02/26/22 04:44 Labs: Abnormal Lab Results 02/26/22 02/25/22 02/24/22 04:44 04:05 17:26 RBC Hgb Hct POC Hct 35.0 L MCV MCH Lymph % (Auto) [place] % (Auto) Lymph # (Auto) [place] # (Auto) POC Potassium 5.9 H* Potassium 5.3 H Carbon Dioxide 18 L 19 L POC Total CO2 20.0 L POC BUN 81 H BUN 54 H 69 H Creatinine 1.5 H 2.0 H POC Creatinine 2.3 H Glucose 113 H Calcium 7.8 L 8.3 L POC WB Ioniz Calcium 1.10 L GGT 117 H Alkaline Phosphatase 180 H Total Protein 5.4 L Albumin 2.6 L Albumin/Globulin Ratio 0.9 L 02/24/22 02/24/22 02/24/22 15:43 15:41 15:37 RBC 3.38 L Hgb 11.8 L Hct 36.7 L POC Hct 40.0 L 40.0 L MCV 108.6 H MCH 34.9 H Lymph % (Auto) 13.6 L [place] % (Auto) 12.6 H Lymph # (Auto) 1.00 L [place] # (Auto) 0.93 H POC Potassium 5.8 H 5.9 H* Potassium Carbon Dioxide POC Total CO2 21.0 L 21.0 L POC BUN 81 H 76 H BUN Creatinine POC Creatinine 2.3 H 2.4 H Glucose Calcium POC WB Ioniz Calcium 1.15 L 1.14 L GGT Alkaline Phosphatase Total Protein Albumin Albumin/Globulin Ratio Meds: Medications Acetaminophen (Acetaminophen 325 Mg Tablet) 650 mg PO Q6HP PRN; Protocol PRN Reason: Per Pain Protocol/Fever > 101 Hydrocodone Bitart/Acetaminophen (Hydrocodone/Apap 5/325mg Tablet) 1 tab PO Q4HP PRN PRN Reason: PAIN LEVEL 3-6 Last Admin: 02/26/22 02:04 Dose: 1 tab Albuterol/Ipratropium (Ipratropium/Albuterol 3 Ml Ampul.Neb) 3 ml NEB QID [facility] Last Admin: 02/25/22 22:52 Dose: 3 ml Allopurinol (Allopurinol 100 Mg Tablet) 100 mg PO QDAY [facility] Last Admin: 02/25/22 11:57 Dose: 100 mg Apixaban (Apixaban 5 Mg Tablet) 5 mg PO BID [facility] Last Admin: 02/25/22 19:51 Dose: Not Given Atorvastatin Calcium (Atorvastatin 20 Mg Tablet) 20 mg PO QDAY [facility] Last Admin: 02/25/22 11:56 Dose: 20 mg Bisacodyl (Bisacodyl 10 Mg Supp.Rect) 10 mg HI Q2-3DAYS PRN PRN Reason: Constipation Last Admin: 02/25/22 22:52 Dose: 10 mg Budesonide (Budesonide 0.5 Mg/2 Ml Ampul.Neb) 0.5 mg NEB Q12 [facility] Last Admin: 02/25/22 21:20 Dose: Not Given Docusate Sodium (Docusate Sodium 100 Mg Capsule) 100 mg PO BID [facility] Last Admin: 02/25/22 20:05 Dose: 100 mg Potassium Chloride 40 meq/ (Dextrose) 520 mls @ 130 mls/hr IV UD PRN PRN Reason: Potassium < 3 Magnesium Sulfate (Magnesium Sulfate) 2 gm in 50 mls @ 50 mls/hr IV UD PRN PRN Reason: Magnesium </= 1.6 Ceftriaxone Sodium 2 gm/ (Dextrose) 50 mls @ 100 mls/hr IV Q24H [facility]; Protocol Last Infusion: 02/25/22 13:01 Dose: Infused Sodium Chloride (Sodium Chloride 0.9%) 1,000 mls @ 75 mls/hr IV .[id number] [facility] Stop: 02/26/22 12:43 Last Admin: 02/25/22 22:52 Dose: 75 mls/hr Levothyroxine Sodium (Levothyroxine 75 Mcg Tablet) 75 mcg PO QDAY [facility] Last Admin: 02/25/22 11:56 Dose: 75 mcg Metoprolol Tartrate (Metoprolol Tartrate 5 Mg/5 Ml Vial) 5 mg IV Q2HP PRN PRN Reason: Tachyarrhythmias HR>110 Last Admin: 02/26/22 02:04 Dose: 5 mg Ondansetron HCl (Ondansetron 4 Mg/2 Ml Vial) 4 mg IV Q4HP PRN PRN Reason: Nausea And Vomiting Polyethylene Glycol (Polyethylene Glycol 3350 17 Gm Packet) 17 gm PO DAILYP PRN PRN Reason: Constipation Last Admin: 02/25/22 11:58 Dose: 17 gm Polyethylene Glycol (Polyethylene Glycol 3350 17 Gm Packet) 17 gm PO HS [facility] Last Admin: 02/25/22 20:05 Dose: 17 gm Senna (Sennosides 1 Tablet) 2 tab PO DAILYP PRN PRN Reason: Constipation Sodium Chloride (0.9 % Sodium Chloride 10 Ml Syringe) 10 ml IV Q8 [facility] Last Admin: 02/26/22 04:29 Dose: Not Given Tamsulosin HCl (Tamsulosin 0.4 Mg Capsule) 0.4 mg PO HS [facility] Last Admin: 02/25/22 20:05 Dose: 0.4 mg A/P Narrative A/P Narrative: A: *DILCIA on CKD IIIb: resolved -renal u/s no acute, large prostate causing large post-void residual *Hyperkalemia: resolved *Volume depletion: resolved *Hypotension: pt says baseline BP is 100/60. improved *Left foot cellulitis and toe ulcers/cellulitis: *Anemia, chronic: *h/o systolic(40-45%) CHF: *Chronic atrial fibrillation: *COPD: *HTN: *Hypothyroidism: *Left Hip Osteonecrosis 2/2 fall *Urinary Retention: 2/2 enlarged prostate P: -IVF d/c -Hold Lasix for now -hold BB/ARB for hypotension/hyperkalemia/dilcia, upon d/c will switch ARB to captopril 6.25 bid per nephrology and low K diet -rocephin -cont home IH's -Follow-up renal function and fluid balance -Dr. Matos for left hip -flomax started -PT/OT -CM for SNF placement -ppx: Apixaban Time Spent With Patient Time: Total time spent is greater than 50% in coordination of care (as documented) at patient's floor/unit and/or counseling patient: Total time spent with greater than 50% in coordination of care (as documented) at patient's floor/unit and/or counseling patient:: 25 - 35 minutes QUALITY VTE Deep Vein Thrombosis/Pulmonary Embolism Present on Admission: No
--- NOTE | 2022-02-26 08:35 | EKG ---
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
[2022-02-26] MEDS: LEVOTHYROXINE 75 MCG TABLET PO SCH (08:36)
[2022-02-26] MEDS: DOCUSATE SODIUM 100 MG CAPSULE PO SCH ×2 (08:36→20:28)
[2022-02-26] MEDS: ATORVASTATIN 20 MG TABLET PO SCH (08:36)
[2022-02-26] MEDS: ALLOPURINOL 100 MG TABLET PO SCH (08:36)
[2022-02-26] MEDS: APIXABAN 5 MG TABLET PO SCH ×2 (08:36→20:28)
[2022-02-26] MEDS: POLYETHYLENE GLYCOL 3350 17 GM PACKET PO PRN (08:36)
[2022-02-26] MEDS: SODIUM BICARBONATE 650 MG TABLET PO SCH ×3 (08:44→20:28)
[2022-02-26] MEDS: BUDESONIDE 0.5 MG/2 ML AMPUL.NEB NEB SCH ×3 (09:06→21:24)
[2022-02-26] MEDS: IPRATROPIUM/ALBUTEROL 3 ML AMPUL.NEB NEB SCH ×4 (09:06→22:21)
[2022-02-26] MEDS: cefTRIAXone 2 GM in DEXTROSE 5% IN WATER 50 ML IV SCH (09:29)
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
[2022-02-26] MEDS: POLYETHYLENE GLYCOL 3350 17 GM PACKET PO SCH (20:20)
[2022-02-26] MEDS: BACITRACIN TOPICAL OINT 15 GM TUBE TOPICAL SCH (20:28)
[2022-02-26] MEDS: TAMSULOSIN 0.4 MG CAPSULE PO SCH (20:28)
[2022-02-27] MEDS: 0.9 % SODIUM CHLORIDE 10 ML SYRINGE IV SCH (05:31)
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
[2022-02-27 08:15] LABS: Blood Urea Nitrogen 40 mg/dL (8-23); Calcium 8.3 mg/dL (8.6-10.4); Carbon Dioxide 20 mmol/L (22-30); Chloride 107 mmol/L (96-108); Glomerular Filtration Rate 55; Glucose 100 mg/dL (70-105)
[2022-02-27] MEDS: DOCUSATE SODIUM 100 MG CAPSULE PO SCH (09:03)
[2022-02-27] MEDS: ALLOPURINOL 100 MG TABLET PO SCH (09:03)
[2022-02-27] MEDS: ATORVASTATIN 20 MG TABLET PO SCH (09:03)
[2022-02-27] MEDS: LEVOTHYROXINE 75 MCG TABLET PO SCH (09:03)
[2022-02-27] MEDS: APIXABAN 5 MG TABLET PO SCH (09:03)
[2022-02-27] MEDS: HYDROcodone/APAP 5/325MG TABLET PO PRN (09:04)
[2022-02-27] MEDS: IPRATROPIUM/ALBUTEROL 3 ML AMPUL.NEB NEB SCH (10:03)
[2022-02-27] MEDS: BUDESONIDE 0.5 MG/2 ML AMPUL.NEB NEB SCH (10:03)
[2022-02-27] MEDS: cefTRIAXone 2 GM in DEXTROSE 5% IN WATER 50 ML IV SCH (10:16)
[2022-02-27] MEDS: BACITRACIN TOPICAL OINT 15 GM TUBE TOPICAL SCH (10:16)
== END 2022-02-27 12:30 | DRG 683 ==
LOC: ED 15:02 → ICU 20:28
PROVIDERS: ADMIT Internal Medicine; ATTEND Internal Medicine